=== PATIENT | female | born 1990 | race African-American/Black ===

== ENCOUNTER 2017-11-27 06:40 | Inpatient (IN) | payer OTHER ==
[~2017-11-27] VITALS: Ht 162.6 cm; Wt 77.1 kg
[2017-11-27] MEDS ORDERED: PRENATAL TABLE1 EAC2 PO (11:10)
--- NOTE | 2017-11-27 13:23 | History & Physical ---
General Information and HPI MD Statement: I have seen and personally examined ROMA GREGORIO and documented this H&P. The patient is a 27 year old female at 40 weeks and 1 days gestation who presented with a chief complaint of LABOR PAIN all night. Source of Information: patient, old records Exam Limitations: no limitations History of Present Illness: PT BEGAN HAVING PAINFULL CONTRACTIONS THIS AM WAS 2 CM EARLY TODAY NOW IS 3-4 CM NO ROM, VB POSITIVE FM. Pt well known to our practice with normal anatomy on u/s , 32%tile growth at ATU and gbs negative Allergies/Medications Allergies: Coded Allergies: No Known Allergies (11/27/17) Home Med list Vit No.130/Iron/FA ( Tablet) 27 MG IRON-800 MCG TABLET 1 TAB PO DAILY (Reported) Compliance With Home Meds: GOOD Past History access control officer History : 1 Para: 0 Last Menstrual Period: 02/19/2017 Estimated Delivery Date: 11/26/2017 Past access control officer History: none Surgical History Pertinent Surgical History: none Past Family/Social History Psychosocial History Smoking Status: Never Smoked Review of Systems Review of Systems Constitutional: Reports: no symptoms. Denies: chills, fever. EENTM: Denies: blurred vision, double vision, visual changes. Cardiovascular: Denies: chest pain. Respiratory: Denies: cough, short of breath. GI: Denies: diarrhea, nausea, vomiting. Neurological/Psychological: Denies: anxiety, depressed. Exam & Diagnostic Data Last 24 Hrs of Vital Signs/I&O vss Intake & Output 11/27 1600 11/27 0800 11/27 0000 Intake Total Output Total Balance Patient 170 lb Weight Obstetric Exam Wgt Gained During : 37lbs Pelvimetry: seems adequate Dilation (cm): 3 Effacement (%): 70 Station: -2 Membranes: intact Fluid: unknown Fundal Height (cm): 36 Multiple Gestation? No Contractions: q4-5 #1 - FHR Baseline: 144 Category: 1 Estimated Weight: 3600g Presentation: vtx Patient for Induction? No Physical Exam General Appearance Alert, Oriented X3, Cooperative, Moderate Distress Skin No Rashes HEENT Atraumatic Neck Supple Cardiovascular Regular Rate Lungs Clear to Auscultation Abdomen Soft Neurological Normal Gait, Normal Speech, Strength at 5/5 X4 Ext, Normal Tone, Sensation Intact Labs Blood Type & Rh: O pos Antibody Screen: neg Hct/Hgb & Platelets #1: 36.6/11.1/281 Hct/Hgb & Platelets #2: 35.7/10.9/269 Rubella: immune VDRL #1: nr VDRL #2: nr HbsAg: nrg HIV #1: nr HIV #2 nr 1 Hr P 3 Hr PG: normal Group B Strep: negative Initial Ultrasound: 04/12/2017 7w 3d Anatomy Ultrasound: normal 07/17/17 Ultrasound for EFW: 11/06/17 32%tile Genetic Testing: CF negative, early screen negative NT normal Assessment/Plan Assessment/Plan: early labor As Ranked By This Provider Problem List: 1. Normal labor Core Measures Venous Thromboembolism VTE Risk Factors / No Mechanical VTE Prophylaxis d/t LowRisk-No Interven Req'd No VTE Pharm Prophylaxis d/t LowRisk-No Interven Req'd Attending MD Review Statement Attending Statement Attending MD Statement: examined this patient, discussed with family, discussed w/nursing Attending Assessment/Plan: IUP at term protracted latent phase gbs negative plan pitocin agumentation
[2017-11-27 13:49] LABS: ABSOLUTE BASOPHIL COUNT 0 /CUMM (0.0-0.2); ABSOLUTE EOSINOPHIL COUNT 0 /CUMM (0.0-0.7); ABSOLUTE GRANULOCYTE CT 13.4 /CUMM (1.4-6.5); ABSOLUTE LYMPH COUNT 1.2 /CUMM (1.2-3.4); ABSOLUTE MONOCYTE COUNT 0.2 /CUMM (0.10-0.60); BASOPHIL % 0 % (0.0-2.0); EOSINOPHIL % 0 % (0-5); HEMATOCRIT 39.8 % (37-47); MEAN CORPUSCULAR HGB 26.3 PG (27.0-31.0); MEAN CORPUSCULAR HGB CONC 32.6 G/DL (33.0-37.0); MEAN CORPUSCULAR VOLUME 80.6 FL (81.0-99.0); MEAN PLATELET VOLUME 10.1 FL (7.4-10.4); PLATELET COUNT 245 /CUMM (130-400); RBC DISTRIBUTION WIDTH 14.7 % (11.5-14.5); RED BLOOD CELL CT 4.94 /CUMM (4.20-5.40); WHITE BLOOD CELL COUNT 14.9 /CUMM (4.8-10.8)
[2017-11-27 14:17] LABS: GRANULOCYTE % 90.3 % (42.2-75.2)
--- NOTE | 2017-11-27 16:51 | PN- OBGYN ---
Surgical Brief Attending Note Brief Attending Note: Pt requested epidural which was placed she soon became fully dilated AROM clear fluid will start pushing.
--- NOTE | 2017-11-27 18:00 | Labor & Delivery Summary ---
Delivery Summary Vaginal Delivery: Vaginal: vertex : : vacuum Station/Position at Jolly: 0 Indication: MATERNAL EXHAUTION Episiotomy/Lacerations: Episiotomy/Lacerations: none Placenta: Placenta: spontanteous, normal, 3 vessel Anesthesia: block Baby's Weight: 6# 5 OZ Apgars - 1 Min: 9 Apgars - 5 Min: 9 Additional Comments: DELIVERED WITH EPIDURAL GOOD BLOCK ROP POSITION
[2017-11-28 09:16] LABS: ABSOLUTE BASOPHIL COUNT 0.1 /CUMM (0.0-0.2); ABSOLUTE EOSINOPHIL COUNT 0 /CUMM (0.0-0.7); ABSOLUTE GRANULOCYTE CT 11.6 /CUMM (1.4-6.5); ABSOLUTE LYMPH COUNT 3.7 /CUMM (1.2-3.4); ABSOLUTE MONOCYTE COUNT 1.3 /CUMM (0.10-0.60); BASOPHIL % 0.4 % (0.0-2.0); EOSINOPHIL % 0.2 % (0-5); GRANULOCYTE % 69.1 % (42.2-75.2); MEAN CORPUSCULAR HGB 26.5 PG (27.0-31.0); MEAN CORPUSCULAR HGB CONC 32.5 G/DL (33.0-37.0); MEAN CORPUSCULAR VOLUME 81.3 FL (81.0-99.0); PLATELET COUNT 209 /CUMM (130-400); RBC DISTRIBUTION WIDTH 15.4 % (11.5-14.5); RED BLOOD CELL CT 4.19 /CUMM (4.20-5.40); WHITE BLOOD CELL COUNT 16.8 /CUMM (4.8-10.8)
--- NOTE | 2017-11-28 10:02 | PN- Post Delivery/GYN ---
Subjective Subjective: doing well, no complaints Review of Systems Constitutional: Reports: no symptoms. EENTM: Reports: no symptoms. Cardiovascular: Reports: no symptoms. Respiratory: Reports: no symptoms. Gastrointestinal: Reports: no symptoms. Genitourinary: Reports: see HPI. Musculoskeletal: Reports: no symptoms. All Other Systems: Reviewed and Negative Objective Last 24 Hrs of Vital Signs/I&O vss Physical Exam: VSS CV RRR Lungs CTA B/L Abdomen: soft, nontender, uterus firm, fundus below umbilicus, lochia mild Ext: DCT (-) Current Medications: Current Medications Sig/[place] Start time Last Medication Dose Route Stop Time Status Admin Acetaminophen 650 MG Q4P PRN 11/27 1800 AC PO Bupivacaine HCl 10 ML .STK-MED ONE 11/27 1625 DC EPID 11/27 1626 Butorphanol Tartrate 2 MG Q4P PRN 11/27 1315 DC IV Butorphanol Tartrate 2 MG Q4P PRN 11/27 1315 DC IM Butorphanol Tartrate 1 MG Q4P PRN 11/27 1115 DC 11/27 IM 1100 Butorphanol Tartrate 1 MG Q4P PRN 11/27 1115 DC 11/27 IV 1100 Docusate Sodium 100 MG BID PRN 11/27 1800 AC PO Hydroxyzine HCl 50 MG AT BEDTIME NEED.. 11/27 1800 AC PO Ibuprofen 800 MG Q6P PRN 11/27 1800 AC 11/28 PO 0551 Lactated Ringer's 1,000 ML Q8H 11/27 1345 DC 11/27 IV 1541 Magnesium Hydroxide 30 ML DAILY PRN 11/27 1800 AC PO Oxytocin 20 UNITS Q5H 11/27 1800 DC 11/27 Lactated Ringer's 1,000 ML IV 11/27 2259 1815 Oxytocin 30 UNITS PER PROTOCL 11/27 1315 DC 11/27 Lactated Ringer's 500 ML IV 1337 Last 24 Hrs of Labs/Link: Laboratory Tests 11/28/17 0630: CBC w Diff Pending, WBC Pending, RBC Pending, Hgb Pending, Hct Pending, MCV Pending, MCH Pending, MCHC Pending, RDW Pending, Plt Count Pending, MPV Pending 11/27/17 1325: CBC w Diff NO MAN DIFF REQ, RBC 4.94, MCV 80.6 L, MCH 26.3 L, MCHC 32.6 L, RDW 14.7 H, MPV 10.1, Gran % 90.3 H, Lymphocytes % 8.3 L, Monocytes % 1.4 L, Eosinophils % 0, Basophils % 0, Absolute Granulocytes 13.4 H, Absolute Lymphocytes 1.2, Absolute Monocytes 0.2, Absolute Eosinophils 0, Absolute Basophils 0, Urine Color YEL, Urine Clarity HAZY H, Urine pH 6.5, Ur Specific [place] 1.025, Urine Protein 30 H, Urine Ketones NEG, Urine Nitrite NEG, Urine Bilirubin NEG, Urine Urobilinogen 0.2, Ur Leukocyte Esterase SMALL H, Ur Microscopic SEDIMENT EXAMINED, Urine RBC 1-3, Urine WBC 5-10 H, Ur Epithelial Cells MANY H, Urine Bacteria MANY H, Urine Mucus FEW, Urine Hemoglobin TRACE- INTACT, Urine Glucose NEG Microbiology 11/27 1610 URINE ROUT: Urine Culture - RES Assessment/Plan Assessment/Plan 27yo, s/p vacuum assisted vaginal delivery, PPD #1 1. encourage ambulation and 2. pain management as needed 3.RT PP care
[2017-11-29] MEDS ORDERED: IBUPROFEN800 M1 PO (08:29)
--- NOTE | 2017-11-29 08:32 | PN- Post Delivery/GYN ---
Subjective Subjective: feeling well Review of Systems Constitutional: Reports: no symptoms. Denies: chills, fever. EENTM: Denies: blurred vision, double vision, visual changes. Cardiovascular: Denies: chest pain, palpitations. Respiratory: Denies: cough. Gastrointestinal: Denies: nausea, vomiting. Neurological/Psychological: Denies: anxiety, depressed. Objective Last 24 Hrs of Vital Signs/I&O vss Physical Exam General Appearance Alert, Oriented X3, Cooperative, No Acute Distress Cardiovascular Regular Rate Lungs Clear to Auscultation Abdomen Soft, fundus firm Pelvic (FEMALE) lochia serosanganous Current Medications: Current Medications Sig/[place] Start time Last Medication Dose Route Stop Time Status Admin Acetaminophen 650 MG Q4P PRN 11/27 1800 AC PO Docusate Sodium 100 MG BID PRN 11/27 1800 AC PO Hydroxyzine HCl 50 MG AT BEDTIME NEED.. 11/27 1800 AC PO Ibuprofen 800 MG .STK-MED ONE 11/28 1130 DC PO 11/28 1131 Ibuprofen 800 MG Q6P PRN 11/27 1800 AC 11/28 PO 1504 Magnesium Hydroxide 30 ML DAILY PRN 11/27 1800 AC PO Assessment/Plan Assessment/Plan ppd #2 vss afebrile Problem List: 1. Normal labor Attending MD Review Statement Attending Statement Attending MD Statement: examined this patient, discussed with family, discussed with nursing
== END 2017-11-29 13:00 | DRG 775 ==
LOC: CBCO 06:40 → GNO 10:45
PROVIDERS: Obstetrics & Gynecology
PROC: 10D07Z6 Extraction of Products of Conception, Vacuum, Via Natural or Artificial Opening (ICD-10-PCS; principal; 2017-11-27)
DX: O75.81 Maternal exhaustion complicating labor and delivery (principal); Z37.0 Single live birth; Z3A.40 40 weeks gestation of pregnancy
CPT/HCPCS: GNOS; 36415; 81001; 87086; 96360; 96361; G0378; G0463; J7120